=== PATIENT | female | born 1995 | race African-American/Black ===

== ENCOUNTER 2024-07-12 08:25 | Emergency (ER) | payer BC ==
[~2024-07-12] VITALS: Ht 162.6 cm; Wt 64.5 kg
[2024-07-12 08:30] VITALS: PULSE 72; RESP 18; TEMP 98.6; O2SAT 100
[2024-07-12] MEDS ORDERED: AZITHROMYCIN250 MG PO (08:58)
== END 2024-07-12 09:05 | disposition home or self-care (01) ==
LOC: FSED 08:30
DX: J02.9 Acute pharyngitis, unspecified (principal); R05.9 Cough, unspecified; R09.89 Other specified symptoms and signs involving the circulatory and respiratory systems; G40.909 Epilepsy, unspecified, not intractable, without status epilepticus; Z11.52 Encounter for screening for COVID-19
CPT/HCPCS: 0223U; 83518; 87400; 99284